=== PATIENT | female | born 1950 ===

== ENCOUNTER 2023-10-15 10:59 | Outpatient (CLI) | payer OTHER, SELFPAY ==
--- NOTE | ~2023-10-15 | XR_ITS ---
Clinical Indication: Wheezing PA and lateral views of the chest: Comparison: None Findings: Hazy retrocardiac airspace disease probably present. Right lung clear. Cardiomediastinal s ilhouette is within normal limits. Calcified right hilar lymph nodes are present. Bones and soft tiss ues are unremarkable. Impression: Probable retrocardiac atelectasis versus pneumonia. Correlate clinically. Reviewed, dictated and finalized at [facility]. Impression: Probable retrocardiac atelectasis versus pneumonia. Correlate clinically.
== END 2023-10-15 11:00 ==
LOC: MICIMG 11:00
PROVIDERS: PCP Family Medicine; Visit Provider Physician Assistant Medical
DX: R06.2 Wheezing (principal)
CPT/HCPCS: 71046